=== PATIENT | male | born 1965 | race Caucasian/White ===

== ENCOUNTER 2017-02-13 18:00 | Outpatient (CLI) | payer BC | END 2017-02-13 18:01 | disposition home or self-care (01) | LOC: SLEEPLAB 18:00 | PROVIDERS: ATTEND Family Medicine | DX: G47.33 Obstructive sleep apnea (adult) (pediatric) (principal); R06.83 Snoring; R53.83 Other fatigue; E66.9 Obesity, unspecified; G47.61 Periodic limb movement disorder | CPT/HCPCS: 95806 ==

== ENCOUNTER 2018-02-26 12:03 | Outpatient (CLI) | payer BC ==
--- NOTE | 2018-02-26 13:51 | RAD ---
2 VIEWS CHEST: Date: 02/26/18 COMPARISON: None. HISTORY: Shortness of breath. FINDINGS: Two views of the chest show a normal sized cardiomediastinal silhouette. Linear opacities are seen in the left lung base, which may represent atelectasis or scarring. No pleural effusion is seen. IMPRESSION: Left basilar scarring versus atelectasis. POS: [facility]
== END 2018-02-26 12:04 | disposition home or self-care (01) ==
LOC: SCSRAD 12:03
PROVIDERS: ATTEND Family Medicine
DX: R09.89 Other specified symptoms and signs involving the circulatory and respiratory systems (principal)
CPT/HCPCS: 71046

== ENCOUNTER 2018-09-10 14:20 | Outpatient (CLI) | payer OTHER ==
--- NOTE | 2018-09-10 15:55 | CT ---
CT SCAN OF THE CHEST WITHOUT CONTRAST FOR CORONARY CALCIUM SCORING: HISTORY: Hypertriglyceridemia, obesity, abnormal blood work FINDINGS: No calcified plaque is seen in the coronary arteries. The total calcium score using the AJ-130 method is 0. No pleural or pericardial effusions are seen. The visualized lung mac are clear. There are degener ative changes in the spine. IMPRESSION: Total coronary calcium score is 0.
== END 2018-09-10 14:21 | disposition home or self-care (01) ==
LOC: BICCT 14:20
PROVIDERS: ATTEND Family Medicine
DX: E78.1 Pure hyperglyceridemia (principal); E66.9 Obesity, unspecified
CPT/HCPCS: 75571

== ENCOUNTER 2019-02-17 14:46 | Emergency (ER) | payer BC ==
[2019-02-17] MEDS ORDERED: Lidocaine 1% 20 ML MDV ONE (15:16)
[2019-02-17] MEDS ORDERED: Adacel (T-DAP) 0.5 ML SYRINGE ONE (15:16)
[2019-02-17] MEDS ORDERED: Bacitracin 1 PK ONE (15:43)
== END 2019-02-17 16:01 | disposition home or self-care (01) ==
LOC: SCSER 14:46
DX: S61.210A Laceration without foreign body of right index finger without damage to nail, initial encounter (principal); Z23 Encounter for immunization; W25.XXXA Contact with sharp glass, initial encounter
CPT/HCPCS: 12001; 90471; 90715; J2001